=== PATIENT | female | born 1980 | race American Indian/Alaskan Native ===

== ENCOUNTER 2016-10-22 15:24 | Emergency (ER) | payer SELFPAY ==
[2016-10-22 15:41] VITALS: BP 133/88
--- NOTE | 2016-10-22 17:09 | EDM.PDOC ---
ED HPI ENT - General Chief Complaint: ENT Problem Stated Complaint: TOOTH ACHE Time Seen by Provider: 10/22/16 17:01 Source: Reports: Patient, RN notes reviewed History Limitations: Reports: No limitations - History of Present Illness INITIAL COMMENTS - FREE TEXT/NARRATIVE: 35-year-old female presents emergency department for a complaint of dental pain , she has a broken tooth in the back on the left side has been causing pain for the last 24 hours she does have an appointment with the community dentist the middle of November denies any fevers - Related Data Allergies/ADRs: Allergies Allergy/AdvReac Type Severity Reaction Status Date / Time No Known Allergies Allergy Verified 03/04/14 16:13 Home Meds: Home Meds Aspirin [Mary Chewable] 81 mg PO DAILY 03/04/14 [History] Insulin Aspart [NovoLOG] 12 units SQ TIDMEALS 03/04/14 [History] Insulin Detemir [Levemir Flexpen] 48 unit SQ BEDTIME 03/04/14 [History] Lisinopril 20 mg PO DAILY 03/04/14 [History] Simvastatin [Zocor] 10 mg PO DAILY 03/04/14 [History] Past Medical History Endocrine/Metabolic History: Reports: Diabetes, type II Social & Family History - Tobacco Use Smoking Status *Q: Current Every Day Smoker Years of Tobacco use: 10 Packs/Tins Daily: 0.5 Used Tobacco, but Quit: No - Alcohol Use Days Per Week of Alcohol Use: 1 Number of Drinks Per Day: 12 Total Drinks Per Week: 12 - Recreational Drug Use Recreational Drug Use: No ED ROS ENT - Review of Systems Review Of Systems: See Below Constitutional: Denies: fever, chills HEENT: Reports: Dental pain Respiratory: Reports: No Symptoms Cardiovascular: Reports: No symptoms GI/Abdominal: Reports: No symptoms : Reports: no symptoms ED EXAM, ENT - Physical Exam Exam: See Below Exam Limited By: No limitations General Appearance: alert, WD/WN, no apparent distress Mouth/Throat: Normal inspection, Normal lips, Dental pain, Dental tenderness, Dental trauma Head: atraumatic, normocephalic Neck: normal inspection, supple, non-tender, full range of motion Respiratory/Chest: no respiratory distress, lungs clear, normal breath sounds, no accessory muscle use Cardiovascular: regular rate, rhythm, no murmur Course - Vital Signs Last Recorded V/S: Last Vital Signs Temp 97.6 F 10/22/16 15:40 Pulse 93 10/22/16 15:40 Resp 16 10/22/16 15:40 BP 133/88 10/22/16 15:40 Pulse Ox 96 10/22/16 15:40 Departure - Departure Time of Disposition: 17:08 Disposition: Home, Self-Care 01 Condition: good Clinical Impression: Pain, dental Forms: ED Department Discharge Additional Instructions: Take full course of antibiotics, use hydrocodone for pain control in combination with ibuprofen please keep your followup appointment with dentistry, - Assessment/Plan Plan: Assessment Acuity = acute Site and laterality = dental pain concern for abscess tooth #16 Etiology = dental caries Manifestations = pain Location of injury = home Lab values = none Plan Keep your appointment with dentist, prescription written for clindamycin 300 mg 4 times a day x5 days hydrocodone for pain total #10 Patient was in agreement with the plan all questions were answered, they were instructed to return to the emergency department or call for worsening symptoms. This note was dictated using [employer] voice recognition software please call with any questions.
== END 2016-10-22 17:15 | disposition home or self-care (01) ==
LOC: JP.ED 15:24
DX: K08.89 Other specified disorders of teeth and supporting structures (principal); F17.210 Nicotine dependence, cigarettes, uncomplicated; E11.9 Type 2 diabetes mellitus without complications; Z79.82 Long term (current) use of aspirin; Z79.4 Long term (current) use of insulin; Z79.899 Other long term (current) drug therapy
CPT/HCPCS: 99283

== ENCOUNTER 2018-08-22 19:09 | Emergency (ER) | payer OTHER ==
[2018-08-22 20:09] VITALS: BP 124/92
--- NOTE | 2018-08-22 21:01 | EDM.PDOC ---
ED HPI GENERAL MEDICAL PROBLEM - General Chief Complaint: Wound Recheck Stated Complaint: ABSCESS BOIL LANCED Time Seen by Provider: 08/22/18 20:28 Source of Information: Reports: Patient History Limitations: Reports: No Limitations - History of Present Illness INITIAL COMMENTS - FREE TEXT/NARRATIVE: This lady had a boil lanced several days ago but she did not make her follow-up appointment. She just wants the thing rechecked. She's taking an antibiotic. She doesn't know if the packing is still in or not. She took a shower today area think that's all she's done for it 9 Pain Score (Numeric/FACES): 9 - Related Data Allergies Allergy/AdvReac Type Severity Reaction Status Date / Time No Known Allergies Allergy Verified 08/22/18 20:08 Home Meds: Home Meds Aspirin [Mary Chewable] 81 mg PO DAILY 03/04/14 [History] Insulin Aspart [NovoLOG] 12 units SQ TIDMEALS 03/04/14 [History] Insulin Detemir [Levemir Flexpen] 48 unit SQ BEDTIME 03/04/14 [History] Lisinopril 20 mg PO DAILY 03/04/14 [History] Simvastatin [Zocor] 10 mg PO DAILY 03/04/14 [History] Clindamycin HCl 300 mg PO QID 08/22/18 [History] Past Medical History - Past Health History Medical/Surgical History: Denies Medical/Surgical History Endocrine/Metabolic History: Reports: Diabetes, Type II Social & Family History - Tobacco Use Smoking Status *Q: Current Every Day Smoker Years of Tobacco use: 6 Packs/Tins Daily: 0.1 ED ROS GENERAL - Review of Systems Review Of Systems: ROS reveals no pertinent complaints other than HPI. ED EXAM, SKIN/RASH Exam: See Below Exam Limited By: No Limitations General Appearance: Alert, No Apparent Distress (Female) Exam: Other (There is an abscess on the medial side of the left crural fold. It appears to have been lanced. There is a yellow area of dried pus it's about 5 mm x 1 cm and that was picked off with a swab stick. There was no pus running out of it. I manipulated the area and it doesn't really seem very tender. There is no fluctuance.) Course - Vital Signs Last Recorded V/S: Last Vital Signs Temp 36.1 C 08/22/18 20:15 Pulse 97 08/22/18 20:15 Resp 16 08/22/18 20:15 BP 124/92 H 08/22/18 20:15 Pulse Ox 98 08/22/18 20:15 Departure - Departure Time of Disposition: 20:59 Disposition: Home, Self-Care 01 Condition: Fair Clinical Impression: Encounter for wound re-check - Discharge Information Referrals: PCP,None [Primary Care Provider] - Additional Instructions: Continue taking the antibiotics. Once or twice a day take a shower and run the hot water over the abscess. It should gradually get better area if you notice it getting worse than see your
== END 2018-08-22 21:20 | disposition home or self-care (01) ==
LOC: JP.ED 19:09
DX: Z48.817 Encounter for surgical aftercare following surgery on the skin and subcutaneous tissue (principal); F17.210 Nicotine dependence, cigarettes, uncomplicated; Z79.899 Other long term (current) drug therapy; Z79.82 Long term (current) use of aspirin
CPT/HCPCS: 99283

== ENCOUNTER 2020-04-17 02:15 | Emergency (ER) | payer MEDICAID, OTHER ==
[2020-04-17 02:33] VITALS: BP 148/89; PULSE 90
--- NOTE | 2020-04-17 02:45 | EDM.PDOC ---
ED HPI GENERAL MEDICAL PROBLEM - General Chief Complaint: ENT Problem Stated Complaint: BLOODY NOSE Time Seen by Provider: 04/17/20 02:36 Source of Information: Reports: Patient History Limitations: Reports: No Limitations - History of Present Illness INITIAL COMMENTS - FREE TEXT/NARRATIVE: The patient presents requesting pain medication following placement of nasal tampon devices for recurrent, severe nosebleeds. 6 days ago, she developed a nosebleed in the left nostril and went to [facility] in [place]. After several attempts to control bleeding, a Rhino rocket was placed in the right nostril but she required a rapid Rhino inflatable tampon for hemorrhage control in the left. It was recommended she use Tylenol and/or ibuprofen as needed for pain. The pressure from the rapid Rhino device in the left nostril has been unbearable and she has been unable to sleep for the last several nights. Bleeding has not recurred. She is scheduled to be seen in follow-up in ENT clinic in [place] on Friday, 18 April. Duration: Day(s): (6) Location: Reports: Face Quality: Reports: Ache, Pressure Severity: Moderate Improves with: Reports: None Worsens with: Reports: Movement Associated Symptoms: Reports: No Other Symptoms Left Face/Facial Pain Score (Numeric/FACES): 9 - Related Data Allergies Allergy/AdvReac Type Severity Reaction Status Date / Time No Known Allergies Allergy Verified 04/17/20 02:24 Home Meds: Home Meds Aspirin [Mary Chewable] 81 mg PO DAILY 03/04/14 [History] Insulin Aspart [NovoLOG] 12 units SQ TIDMEALS 03/04/14 [History] Insulin Detemir [Levemir Flexpen] 48 unit SQ BEDTIME 03/04/14 [History] Lisinopril 20 mg PO DAILY 03/04/14 [History] Simvastatin [Zocor] 10 mg PO DAILY 03/04/14 [History] Past Medical History - Past Health History Medical/Surgical History: Denies Medical/Surgical History Cardiovascular History: Reports: High Cholesterol, Hypertension Endocrine/Metabolic History: Reports: Diabetes, Type II - Infectious Disease History Infectious Disease History: Reports: Chicken Pox Social & Family History - Tobacco Use Smoking Status *Q: Current Every Day Smoker Years of Tobacco use: 25 Packs/Tins Daily: 0.2 - Caffeine Use Caffeine Use: Reports: Coffee, Soda, Tea - Recreational Drug Use Recreational Drug Use: No ED ROS ENT - Review of Systems Review Of Systems: Comprehensive ROS is negative, except as noted in HPI. ED EXAM, ENT - Physical Exam Exam: See Below Text/Narrative:: This is an adult female examined in room 2. Both the nasal tampon devices are in place and she looks extremely uncomfortable. Exam Limited By: No Limitations General Appearance: Moderate Distress Nose: Dried Blood, Other (The co pilot balloon for the rapid Rhino device in the le ft nostril still has tension in it indicating satisfactory pressure with in the nostril.). No: Active Bleeding Course - Vital Signs Last Recorded V/S: Last Vital Signs Temp 36.2 C 04/17/20 02:30 Pulse 90 04/17/20 02:30 Resp 16 04/17/20 02:30 BP 148/89 H 04/17/20 02:30 Pulse Ox 92 L 04/17/20 02:30 - Re-Assessments/Exams Free Text/Narrative Re-Assessment/Exam: 04/17/20 06:22 And [facility] prescription was entered for hydrocodone 5/325 mg, 8 tablets. She should continue to use cold compresses for additional pain relief over the face itself. She should avoid touching the tampons to reduce the risk of recurrent bleeding. If bleeding returns, she should return here or to [facility] in [place]. Departure - Departure Time of Disposition: 02:45 Disposition: Home, Self-Care 01 Clinical Impression: Epistaxis, Referred facial pain - Discharge Information Instructions: Nosebleed, [id number] Referrals: PCP,None [Primary Care Provider] - Forms: ED Department Discharge Additional Instructions: Keep nasal packing in place and try not to touch or bump the packing. Use hydrocodone as prescribed for pain. Keep your follow-up appointment with the ear nose and throat doctor on Friday as planned. If bleeding resumes around your packing, return to emergency department. Sepsis Event Note (ED) - Evaluation Sepsis Screening Result: No Definite Risk - Focused Exam Vital Signs: Vital Signs Temp Pulse Resp BP Pulse Ox 04/17/20 02:30 36.2 C 90 16 148/89 H 92 L
== END 2020-04-17 02:53 | disposition home or self-care (01) ==
LOC: JP.ED 02:15
DX: R04.0 Epistaxis (principal); R51 Headache; I10 Essential (primary) hypertension; E78.00 Pure hypercholesterolemia, unspecified; E11.9 Type 2 diabetes mellitus without complications; F17.210 Nicotine dependence, cigarettes, uncomplicated; Z79.82 Long term (current) use of aspirin; Z79.4 Long term (current) use of insulin; Z79.899 Other long term (current) drug therapy
CPT/HCPCS: 99283

== ENCOUNTER 2020-05-12 18:34 | Emergency (ER) | payer MEDICAID, OTHER ==
[2020-05-12 18:38] VITALS: BP 168/99; PULSE 97
[2020-05-12] MEDS ORDERED: Sodium Chloride 0.9% 1,000 ML IV ONE (19:25)
[2020-05-12] MEDS ORDERED: Ondansetron 4 MG/2 ML SDV IVPUSH ONE (19:26)
[2020-05-12] MEDS ORDERED: Sodium Chloride 0.9% 10 ML Syringe FLUSH PRN (19:26)
[2020-05-12] MEDS ORDERED: HYDROmorphone 0.5 MG/0.5 ML Syringe IVPUSH ONE (19:26)
--- NOTE | 2020-05-12 19:28 | EDM.PDOC ---
<Ashley Jalloh M - Last Filed: 05/12/20 20:43> ED HPI GENERAL MEDICAL PROBLEM - General Chief Complaint: Abdominal Pain Stated Complaint: MEDICAL VIA [facility] Time Seen by Provider: 05/12/20 19:22 Source of Information: Reports: Patient, RN, RN Notes Reviewed History Limitations: Reports: No Limitations - History of Present Illness INITIAL COMMENTS - FREE TEXT/NARRATIVE: Pt presents to ER with 3 days of nausea and vomiting. C/O pain midline near umbilicus. No fever, chills, SOB, CP, or cough. Pt has tried to drink pedialitye and that didn't stay down. Dry heaves presently. Pain 05/20 with no radiation but aching type pain. Onset Date: 05/10/20 Duration: Day(s):, Constant middle abd pain Pain Score (Numeric/FACES): 9 - Related Data Allergies Allergy/AdvReac Type Severity Reaction Status Date / Time No Known Allergies Allergy Verified 05/12/20 19:07 Home Meds: Home Meds Aspirin [Mary Chewable] 81 mg PO DAILY 03/04/14 [History] Insulin Aspart [NovoLOG] 12 units SQ TIDMEALS 03/04/14 [History] Insulin Detemir [Levemir Flexpen] 48 unit SQ BEDTIME 03/04/14 [History] Lisinopril 20 mg PO DAILY 03/04/14 [History] Simvastatin [Zocor] 10 mg PO DAILY 03/04/14 [History] Past Medical History - Past Health History Medical/Surgical History: Denies Medical/Surgical History Cardiovascular History: Reports: High Cholesterol, Hypertension Endocrine/Metabolic History: Reports: Diabetes, Type II - Infectious Disease History Infectious Disease History: Reports: Chicken Pox, Novel Coronavirus, Shingles Social & Family History - Tobacco Use Smoking Status *Q: Current Every Day Smoker Years of Tobacco use: 20 Packs/Tins Daily: 0.2 - Caffeine Use Caffeine Use: Reports: Coffee - Recreational Drug Use Recreational Drug Use: No ED ROS GENERAL - Review of Systems Review Of Systems: See Below Constitutional: Reports: Decreased Appetite HEENT: Reports: No Symptoms Respiratory: Reports: No Symptoms Cardiovascular: Reports: No Symptoms Endocrine: Reports: High Glucose (Known diabetic ) GI/Abdominal: Reports: Abdominal Pain, Decreased Appetite, Nausea, Vomiting : Reports: No Symptoms Musculoskeletal: Reports: No Symptoms Skin: Reports: No Symptoms Neurological: Reports: No Symptoms Psychiatric: Reports: No Symptoms Hematologic/Lymphatic: Reports: No Symptoms Immunologic: Reports: No Symptoms ED EXAM, GI/ABD - Physical Exam Exam: See Below Exam Limited By: No Limitations General Appearance: Alert, Mild Distress, Other (Somulent ) Head: Normocephalic Neck: Normal Inspection Respiratory/Chest: No Respiratory Distress, Lungs Clear Cardiovascular: Regular Rate, Rhythm GI/Abdominal Exam: Soft, No Distention, No Mass, Tender (Tender near midline umbilicus) (Female) Exam: Deferred Rectal (Female) Exam: Deferred Neurological: Alert, Oriented, CN II-XII Intact Psychiatric: Normal Affect Skin Exam: Warm, Dry Course - Re-Assessments/Exams Free Text/Narrative Re-Assessment/Exam: 05/12/20 20:40 Pt is sleeping and feels a bit better. Will d/c home. Departure - Departure Time of Disposition: 20:40 Disposition: Home, Self-Care 01 Condition: Good Clinical Impression: Gastroenteritis - Discharge Information *PRESCRIPTION DRUG MONITORING PROGRAM REVIEWED*: Not Applicable *COPY OF PRESCRIPTION DRUG MONITORING REPORT IN PATIENT WILLIAM: Not Applicable Instructions: Viral Gastroenteritis, Adult, [id number] Referrals: PCP,None [Primary Care Provider] - Forms: ED Department Discharge Care Plan Goals: Please allow for plenty of rest. Drink fluids and start out with clear liquids such as broth, jello, and apple juice. As your body tolerates, increase to a regular diet. Take the Zofran as directed for nausea. Should the symptoms persist beyond Friday, please see your provider or come back to the hospital. Sepsis Event Note (ED) - Evaluation Sepsis Screening Result: No Definite Risk - Problem List & Annotations (1) Gastroenteritis SNOMED Code(s): 37577184 Code(s): K52.9 - NONINFECTIVE GASTROENTERITIS AND COLITIS, UNSPECIFIED Sta tus: Acute Priority: High - Problem List Review Problem List Initiated/Reviewed/Updated: Yes - Assessment/Plan Plan: Please allow for plenty of rest. Drink fluids and start out with clear liquids such as broth, jello, and apple juice. As your body tolerates, increase to a regular diet. Take the Zofran as directed for nausea. Should the symptoms persist beyond Friday, please see your provider or come back to the hospital. <Tu Stahl - Last Filed: 05/12/20 21:47> Course - Vital Signs Last Recorded V/S: Last Vital Signs Temp 97.5 F 05/12/20 19:09 Pulse 97 05/12/20 19:09 Resp 16 05/12/20 19:09 BP 168/99 H 05/12/20 19:09 Pulse Ox 96 05/12/20 19:09 - Orders/Labs/Meds Orders: Active Orders 24 hr Category Date Time Status Sodium Chloride 0.9% [Saline Flush] Med 05/12/20 19:26 Active 10 ml FLUSH ASDIRECTED PRN Peripheral IV Insertion Adult [OM.PC] Routine Oth 05/12/20 19:26 Ordered Labs: Laboratory Tests 05/12/20 05/12/20 05/12/20 Range/Units 19:26 19:26 19:27 WBC 7.8 (4.5-11.0) K/uL RBC 4.52 (3.30-5.50) M/uL Hgb 12.2 (12.0-15.0) g/dL Hct 38.9 (36.0-48.0) % MCV 86 (80-98) fL MCH 27 (27-31) pg MCHC 31 L (32-36) % Plt Count 440 H (150-400) K/uL Neut % (Auto) 77 H (36-66) % Lymph % (Auto) 16 L (24-44) % Door % (Auto) 7 H (2-6) % Eos % (Auto) 0 L (2-4) % Baso % (Auto) 0 (0-1) % Sodium (140-148) mmol/L Potassium (3.6-5.2) mmol/L Chloride (100-108) mmol/L Carbon Dioxide (21-32) mmol/L Anion Gap (5.0-14.0) mmol/L BUN (7-18) mg/dL Creatinine (0.6-1.0) mg/dL Est Cr Clr Drug Dosing mL/min Estimated GFR (MDRD) (>60) Glucose (74-106) mg/dL Lactic Acid 1.2 (0.4-2.0) mmol/L Calcium (8.5-10.1) mg/dL Total Bilirubin (0.2-1.0) mg/dL AST (15-37) U/L ALT (12-78) U/L Alkaline Phosphatase (46-116) U/L Total Protein (6.4-8.2) g/dL Albumin (3.4-5.0) g/dL Globulin (2.3-3.5) g/dL Albumin/Globulin Ratio (1.2-2.2) Lipase 139 (73-393) U/L 05/12/20 Range/Units 19:27 WBC (4.5-11.0) K/uL RBC (3.30-5.50) M/uL Hgb (12.0-15.0) g/dL Hct (36.0-48.0) % MCV (80-98) fL MCH (27-31) pg MCHC (32-36) % Plt Count (150-400) K/uL Neut % (Auto) (36-66) % Lymph % (Auto) (24-44) % Door % (Auto) (2-6) % Eos % (Auto) (2-4) % Baso % (Auto) (0-1) % Sodium 131 L (140-148) mmol/L Potassium 3.9 (3.6-5.2) mmol/L Chloride 95 L (100-108) mmol/L Carbon Dioxide 26 (21-32) mmol/L Anion Gap 13.9 (5.0-14.0) mmol/L BUN 23 H (7-18) mg/dL Creatinine 1.3 H (0.6-1.0) mg/dL Est Cr Clr Drug Dosing 53.85 mL/min Estimated GFR (MDRD) 45 L (>60) Glucose 296 H (74-106) mg/dL Lactic Acid (0.4-2.0) mmol/L Calcium 9.2 (8.5-10.1) mg/dL Total Bilirubin 0.5 (0.2-1.0) mg/dL AST 9 L (15-37) U/L ALT 20 (12-78) U/L Alkaline Phosphatase 95 (46-116) U/L Total Protein 8.8 H (6.4-8.2) g/dL Albumin 3.6 (3.4-5.0) g/dL Globulin 5.2 H (2.3-3.5) g/dL Albumin/Globulin Ratio 0.7 L (1.2-2.2) Lipase (73-393) U/L Meds: Medications Discontinued Medications Generic Name Dose Route Start Last Admin Trade Name Kathrine PRN Reason Stop Dose Admin Hydromorphone HCl 0.5 mg 05/12/20 19:26 05/12/20 20:12 Dilaudid IVPUSH 05/12/20 19:27 0.5 mg ONETIME ONE Administration Sodium Chloride 1,000 mls @ 999 mls/hr 05/12/20 19:25 05/12/20 19:32 Normal Saline IV 05/12/20 20:25 999 mls/hr .BOLUS ONE Administration Ondansetron HCl 4 mg 05/12/20 19:26 05/12/20 20:11 Zofran IVPUSH 05/12/20 19:27 4 mg ONETIME ONE Administration Sodium Chloride 10 ml 05/12/20 19:26 05/12/20 20:12 Saline Flush FLUSH 10 ml ASDIRECTED PRN Administration Keep Vein Open - Re-Assessments/Exams Free Text/Narrative Re-Assessment/Exam: 05/12/20 21:43 History and exam confirmed and nurse practitioner student notes reviewed. She does have some nonspecific tenderness in the central abdomen and hypoactive bowel sounds but no acute tenderness or guarding or rebound. Work-up is negative, patient will be discharged with Zofran and hydrocodone and can follow- up in several days if not improving. Sepsis Event Note (ED) - Focused Exam Vital Signs: Vital Signs Temp Pulse Resp BP Pulse Ox 05/12/20 19:09 97.5 F 97 16 168/99 H 96 05/12/20 18:36 97.5 F 97 16 168/99 H 96 Attestation - Student - Attestation Statement Attestation Statement: I personally performed or re-performed the physical examination and medical decision making. I have verified all student documentation or findings, including history, physical exam and/or medical decision making.
== END 2020-05-12 21:41 | disposition home or self-care (01) ==
LOC: JP.ED 18:34
DX: K52.9 Noninfective gastroenteritis and colitis, unspecified (principal); I10 Essential (primary) hypertension; E78.00 Pure hypercholesterolemia, unspecified; E11.9 Type 2 diabetes mellitus without complications; F17.210 Nicotine dependence, cigarettes, uncomplicated; Z79.82 Long term (current) use of aspirin; Z79.899 Other long term (current) drug therapy; Z79.4 Long term (current) use of insulin
CPT/HCPCS: 36415; 80053; 83605; 83690; 85025; 96361; 96374; 96375; 99284; J1170; J2405; J7040; 99283

== ENCOUNTER 2021-01-19 21:34 | Emergency (ER) | payer MEDICAID ==
[2021-01-19 22:12] VITALS: BP 133/79; PULSE 95
--- NOTE | 2021-01-19 22:24 | EDM.PDOC ---
ED HPI GENERAL MEDICAL PROBLEM - General Chief Complaint: Lower Extremity Injury/Pain Stated Complaint: SWOLLEN RT FOOT Time Seen by Provider: 01/19/21 22:10 Source of Information: Reports: Patient History Limitations: Reports: No Limitations - History of Present Illness INITIAL COMMENTS - FREE TEXT/NARRATIVE: This is a 40 year old female presenting with right foot pain. Patient reports that approximately 2 weeks ago she tripped over a space heater while walking in the dark and hit her foot on it. She has had pain since then with difficulty bearing weight due to pain. pain worsens with increased weight bearing. She reports that the foot will also get swollen after walking on it also. She denies numbness, tingling, or weakness of the foot. she has been taking ibuprofen wi thout relief of pain. She is also complaining of dysuria and frequency for the past several days. no fever or flank pain. no nausea, vomiting or diarrhea. Right Feet Pain Score (Numeric/FACES): 8 - Related Data Allergies Allergy/AdvReac Type Severity Reaction Status Date / Time No Known Allergies Allergy Verified 01/19/21 22:39 Home Meds: Home Meds Insulin Aspart [NovoLOG] 40 units SQ TIDMEALS 03/04/14 [History] Insulin Detemir [Levemir Flexpen] 70 unit SQ BEDTIME 03/04/14 [History] Lisinopril 20 mg PO DAILY 03/04/14 [History] Simvastatin [Zocor] 10 mg PO DAILY 03/04/14 [History] Cholecalciferol (Vitamin D3) [Vitamin D] 2,000 unit PO DAILY 01/19/21 [History] Gabapentin [Neurontin] 1 tab PO DAILY 01/19/21 [History] Ketorolac [Toradol] 10 mg PO Q6H PRN #20 tab 01/19/21 [Rx] Nitrofurantoin Monohyd/M-Cryst [Macrobid 100 mg Capsule] 100 mg PO BID 5 Days #10 capsule 01/19/21 [Rx] Past Medical History - Past Health History Medical/Surgical History: Denies Medical/Surgical History Cardiovascular History: Reports: High Cholesterol, Hypertension Endocrine/Metabolic History: Reports: Diabetes, Type II - Infectious Disease History Infectious Disease History: Reports: Chicken Pox, Novel Coronavirus, Shingles Social & Family History - Family History Family Medical History: No Pertinent Family History - Caffeine Use Caffeine Use: Reports: Coffee Review of Systems - Review of Systems Review Of Systems: Comprehensive ROS is negative, except as noted in HPI. ED EXAM, GENERAL - Physical Exam Exam: See Below Exam Limited By: No Limitations General Appearance: Alert, WD/WN, No Apparent Distress Respiratory/Chest: No Respiratory Distress, No Accessory Muscle Use Cardiovascular: Regular Rate, Rhythm GI/Abdominal: Soft, Non-Tender, Other (no CVA tenderness) Extremities: Other (Right foot without swelling, erythema, ecchymosis, or deformity. Tender to palpation over the 5th metatarsal. No right ankle tenderness or deforimty. Normal ROM of R ankle.) Neurological: Alert, Oriented, No Motor/Sensory Deficits Skin Exam: Warm, Dry, Normal Color, No Rash Course - Vital Signs Last Recorded V/S: Last Vital Signs Temp 97.5 F 01/19/21 22:42 Pulse 95 01/19/21 22:42 Resp 18 01/19/21 22:42 BP 133/79 01/19/21 22:42 Pulse Ox 94 L 01/19/21 22:42 - Orders/Labs/Meds Orders: Active Orders 24 hr Category Date Time Status Consult to Orthopedic Clinic [CONS] Routine Cons 01/19/21 23:00 Active Foot 2V Rt [CR] Stat Exams 01/19/21 22:17 Taken Labs: Laboratory Tests 01/19/21 Range/Units 22:55 Urine Color Yellow (YELLOW) Urine Appearance Slightly cloudy A (CLEAR) Urine pH 6.0 (5.0-8.0) Ur Specific [place] 1.020 (1.008-1.030) Urine Protein Negative (NEGATIVE) mg/dL Urine Glucose (UA) 500 H (NEGATIVE) mg/dL Urine Ketones Negative (NEGATIVE) mg/dL Urine Occult Blood Negative (NEGATIVE) Urine Nitrite Positive H (NEGATIVE) Urine Bilirubin Negative (NEGATIVE) Urine Urobilinogen 1.0 (0.2-1.0) EU/dL Ur Leukocyte Esterase Small H (NEGATIVE) Urine RBC 0-5 (0-5) Urine WBC 5-10 H (0-5) Ur Epithelial Cells Few Amorphous Sediment Not seen Urine Bacteria Many Urine Mucus Not seen Departure - Departure Time of Disposition: 23:21 Disposition: Home, Self-Care 01 Clinical Impression: Fracture of fifth metatarsal bone of right foot, UTI (urinary tract infection) - Discharge Information Prescriptions: Nitrofurantoin Monohyd/M-Cryst [Macrobid 100 mg Capsule] 100 mg PO BID 5 Days #10 capsule Ketorolac [Toradol] 10 mg PO Q6H PRN #20 tab PRN Reason: Pain Instructions: Metatarsal Fracture Referrals: PCP,None [Primary Care Provider] - Forms: ED Department Discharge Additional Instructions: Use tylenol and ibuprofen for pain. Wear the walking boot at all times when up and moving around. it is ok to remove it when at rest and apply ice. You should limit weight bearing until follow up with orthopedics. They will call you to schedule a follow up appointment next week. Take your antibiotics for the UTI as prescribed until they are all gone. Sepsis Event Note (ED) - Focused Exam Vital Signs: Vital Signs Temp Pulse Resp BP Pulse Ox 01/19/21 22:42 97.5 F 95 18 133/79 94 L 01/19/21 22:10 97.5 F 95 18 133/79 94 L - Problem List Review Problem List Initiated/Reviewed/Updated: Yes - My Orders Last 24 Hours: My Active Orders 01/19/21 22:17 Foot 2V Rt [CR] Stat 01/19/21 23:00 Consult to Orthopedic Clinic [CONS] Routine - Assessment/Plan Last 24 Hours: My Active Orders 01/19/21 22:17 Foot 2V Rt [CR] Stat 01/19/21 23:00 Consult to Orthopedic Clinic [CONS] Routine Plan: This is a 40 year old female presenting with right foot pain. Differential diagnosis includes fracture, sprain, contusion, among others. She is neurovascularly intact. There is no evidence of compartment syndrome or open fracture. XR revealed right 5th metatarsal fracture. She will be placed in a walking boot with limited weight bearing until follow up with orthopedics in 4-5 days. Patient also complaining of dysuria and frequency. Urinalysis is consistent with infection. There is no evidence of pyelonephritis or sepsis. Will plan to treat with a course of macrobid. She is appropriate for discharge home and will follow up with orthopedics for her metatarsal fracture.
--- NOTE | 2021-01-22 09:26 | CR ---
FOOT RIGHT 3 views CLINICAL HISTORY:Trauma FINDINGS:There is an oblique fracture of the fifth metatarsal with minimal displacement. There is a tiny calcaneal spur. Impression: Fracture Right fifth metatarsal
== END 2021-01-19 23:29 | disposition home or self-care (01) ==
LOC: JP.ED 21:34
DX: S92.351A Displaced fracture of fifth metatarsal bone, right foot, initial encounter for closed fracture (principal); N39.0 Urinary tract infection, site not specified; E78.00 Pure hypercholesterolemia, unspecified; I10 Essential (primary) hypertension; E11.9 Type 2 diabetes mellitus without complications; Z79.4 Long term (current) use of insulin; Z79.899 Other long term (current) drug therapy; W01.198A Fall on same level from slipping, tripping and stumbling with subsequent striking against other object, initial encounter
CPT/HCPCS: 73620-26-RT; 73620-RT; 81001; 99283

== ENCOUNTER 2021-04-07 16:37 | Emergency (ER) | payer MEDICAID ==
[2021-04-07 16:55] VITALS: BP 180/95; PULSE 90
[2021-04-07] MEDS ORDERED: Sodium Chloride 0.9% 10 ML Syringe FLUSH PRN (17:11)
[2021-04-07] MEDS ORDERED: Ondansetron 4 MG/2 ML SDV IVPUSH ONE (17:13)
[2021-04-07] MEDS ORDERED: Sodium Chloride 0.9% 1,000 ML IV SCH ×2 (17:45→18:45)
--- NOTE | 2021-04-07 18:02 | EDM.PDOC ---
ED HPI GENERAL MEDICAL PROBLEM - General Chief Complaint: Gastrointestinal Problem Stated Complaint: MEDICAL VIA NORTH-VOMITING Time Seen by Provider: 04/07/21 17:05 Source of Information: Reports: Patient, EMS, RN History Limitations: Reports: No Limitations - Related Data Allergies Allergy/AdvReac Type Severity Reaction Status Date / Time tramadol Allergy Nausea Verified 04/07/21 16:47 Home Meds: Home Meds Insulin Aspart [NovoLOG] 40 units SQ TIDMEALS 03/04/14 [History] Insulin Detemir [Levemir Flexpen] 70 unit SQ BEDTIME 03/04/14 [History] Lisinopril 20 mg PO DAILY 03/04/14 [History] Simvastatin [Zocor] 10 mg PO DAILY 03/04/14 [History] Cholecalciferol (Vitamin D3) [Vitamin D] 2,000 unit PO DAILY 01/19/21 [History] Gabapentin [Neurontin] 1 tab PO DAILY 01/19/21 [History] Past Medical History - Past Health History Medical/Surgical History: Denies Medical/Surgical History Cardiovascular History: Reports: High Cholesterol, Hypertension Endocrine/Metabolic History: Reports: Diabetes, Type II - Infectious Disease History Infectious Disease History: Reports: Chicken Pox, Novel Coronavirus, Shingles Social & Family History - Family History Family Medical History: No Pertinent Family History - Tobacco Use Tobacco Use Status *Q: Current Every Day Tobacco User Years of Tobacco use: 5 Packs/Tins Daily: 0.5 - Caffeine Use Caffeine Use: Reports: Coffee ED ROS GENERAL - Review of Systems Review Of Systems: See Below Constitutional: Reports: Chills, Fatigue, Decreased Appetite HEENT: Reports: No Symptoms Respiratory: Reports: No Symptoms Cardiovascular: Reports: No Symptoms Endocrine: Reports: High Glucose GI/Abdominal: Reports: Abdominal Pain, Nausea, Vomiting. Denies: Black Stool, Bloody Stool, Diarrhea : Reports: No Symptoms Musculoskeletal: Reports: No Symptoms Skin: Reports: No Symptoms Neurological: Reports: No Symptoms Psychiatric: Reports: No Symptoms Hematologic/Lymphatic: Reports: No Symptoms Immunologic: Reports: No Symptoms ED EXAM, GI/ABD - Physical Exam Exam: See Below Exam Limited By: No Limitations General Appearance: Alert, Moderate Distress Respiratory/Chest: No Respiratory Distress, Lungs Clear, Normal Breath Sounds Cardiovascular: Normal Peripheral Pulses, Regular Rate, Rhythm, No Edema GI/Abdominal Exam: Soft, No Abnormal Bruit, No Mass, Tender, Abnormal Bowel Sounds. No: Hernia, Mass, Hepatomegaly, Splenomegaly Extremities: Normal Inspection, Normal Range of Motion Neurological: Alert, Oriented, CN II-XII Intact, Normal Cognition, Normal Gait Psychiatric: Normal Affect, Normal Mood Skin Exam: Warm, Dry, Intact, Normal Color, No Rash Lymphatic: No Adenopathy Course - Vital Signs Last Recorded V/S: Last Vital Signs Temp 36.2 C 04/07/21 16:52 Pulse 90 04/07/21 16:52 Resp 14 04/07/21 16:52 BP 180/95 H 04/07/21 16:52 Pulse Ox 95 04/07/21 16:52 - Orders/Labs/Meds Orders: Active Orders 24 hr Category Date Time Status Peripheral IV Insertion Adult [OM.PC] Routine Oth 04/07/21 17:11 Ordered Labs: Laboratory Tests 04/07/21 04/07/21 04/07/21 Range/Units 17:23 17:28 17:28 WBC 8.7 (4.5-11.0) K/uL RBC 4.60 (3.30-5.50) M/uL Hgb 11.8 L (12.0-15.0) g/dL Hct 38.2 (36.0-48.0) % MCV 83 (80-98) fL MCH 26 L (27-31) pg MCHC 31 L (32-36) % Plt Count 418 H (150-400) K/uL Sodium 134 L (140-148) mmol/L Potassium 4.2 (3.6-5.2) mmol/L Chloride 99 L (100-108) mmol/L Carbon Dioxide 23 (21-32) mmol/L Anion Gap 16.2 H (5.0-14.0) mmol/L BUN 21 H (7-18) mg/dL Creatinine 1.2 H (0.6-1.0) mg/dL Est Cr Clr Drug Dosing 57.75 mL/min Estimated GFR (MDRD) 50 L (>60) Glucose 292 H (74-106) mg/dL Calcium 9.2 (8.5-10.1) mg/dL Total Bilirubin 0.4 (0.2-1.0) mg/dL AST 8 L (15-37) U/L ALT 17 (12-78) U/L Alkaline Phosphatase 123 H (46-116) U/L C-Reactive Protein 2.61 H (0.0-0.3) mg/dL Total Protein 8.5 H (6.4-8.2) g/dL Albumin 3.2 L (3.4-5.0) g/dL Globulin 5.3 H (2.3-3.5) g/dL Albumin/Globulin Ratio 0.6 L (1.2-2.2) Amylase 26 (25-115) U/L Lipase 97 (73-393) U/L Ketones Negative (NEGATIVE) No evidence of DKA or pancreatitis on lab work. 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 Vomiting, dehydration Meds: Medications Discontinued Medications Generic Name Dose Route Start Last Admin Trade Name Freq PRN Reason Stop Dose Admin Dextrose/Water 50 ml 04/07/21 19:09 50% Dextrose In Water 50 Ml Syringe IVPUSH ASDIRECTED PRN Hypoglycemia Glucagon 1 mg 04/07/21 19:09 Glucagon,Human Recombinant 1 Mg Vial IM ASDIRECTED PRN Hypoglycemia Sodium Chloride 1,000 mls @ 999 mls/hr 04/07/21 17:45 04/07/21 17:35 Normal Saline IV 999 mls/hr ASDIRECTED NATHALY Administration Sodium Chloride 1,000 mls @ 999 mls/hr 04/07/21 18:45 04/07/21 18:35 Normal Saline IV 999 mls/hr ASDIRECTED NATHALY Administration Insulin Human Lispro 20 unit 04/07/21 19:09 04/07/21 19:19 Insulin Lispro 100 Unit/Ml 3 Ml Kwikpen SUBCUT 04/07/21 19:10 20 units ONETIME ONE Administration Ondansetron HCl 4 mg 04/07/21 17:13 04/07/21 17:31 Ondansetron 4 Mg/2 Ml Sdv IVPUSH 04/07/21 17:14 4 mg ONETIME ONE Administration Sodium Chloride 10 ml 04/07/21 17:11 04/07/21 17:30 Sodium Chloride 0.9% 10 Ml Syringe FLUSH 10 ml ASDIRECTED PRN Administration Keep Vein Open - Re-Assessments/Exams Free Text/Narrative Re-Assessment/Exam: 04/07/21 18:46 Re-evaluation - patient improvement with fluids and antiemetic. Instructed pt she must take 1/2 her dose of insulin when not able to eat as not to develop DKA or further complications Departure - Departure Time of Disposition: 19:51 Disposition: Home, Self-Care 01 Condition: Fair Clinical Impression: Nausea & vomiting, Dehydration with hyponatremia, Vomiting, Diarrhea, Gastroenteritis - Discharge Information *PRESCRIPTION DRUG MONITORING PROGRAM REVIEWED*: Not Applicable Instructions: Viral Gastroenteritis, Adult, [id number], Dehydration, Adult, [id number], Nausea and Vomiting, Adult Referrals: PCP,None [Primary Care Provider] - Forms: ED Department Discharge Additional Instructions: [place] diet, take 1/2 dose of insulin while not eating to prevent adverse effects. Keep sipping fluids to maintain hydration. Utilize [employer] [facility] up to every eight hours for nausea and vomiting. Sepsis Event Note (ED) - Evaluation Sepsis Screening Result: No Definite Risk - Focused Exam Vital Signs: Vital Signs Temp Pulse Resp BP Pulse Ox 04/07/21 16:52 36.2 C 90 14 180/95 H 95 - My Orders Last 24 Hours: My Active Orders 04/07/21 17:11 Peripheral IV Insertion Adult [OM.PC] Routine - Assessment/Plan Last 24 Hours: My Active Orders 04/07/21 17:11 Peripheral IV Insertion Adult [OM.PC] Routine Assessment:: gastroenteritis Nausea, Vomiting, Diarrhea Plan: Pt received 2 liters of fluids and antiemetic in the ED. Instructed to keep diet bland until she is able to return to her regular diet. Return to ER if vomiting returns or continues. Take 1/2 dose of insulins when not eating. F/U with primary care provider in the next 3-5 days or sooner if necessary.
[2021-04-07] MEDS ORDERED: Insulin Lispro 100 Unit/ML 3 ML KwikPen SUBCUT ONE (19:09)
[2021-04-07] MEDS ORDERED: 50% Dextrose in Water 50 ML Syringe IVPUSH PRN (19:09)
[2021-04-07] MEDS ORDERED: Glucagon,Human Recombinant 1 MG Vial IM PRN (19:09)
== END 2021-04-07 19:54 | disposition home or self-care (01) ==
LOC: JP.ED 16:37
DX: K52.9 Noninfective gastroenteritis and colitis, unspecified (principal); E86.0 Dehydration; E87.1 Hypo-osmolality and hyponatremia; E78.00 Pure hypercholesterolemia, unspecified; I10 Essential (primary) hypertension; E11.9 Type 2 diabetes mellitus without complications; Z88.5 Allergy status to narcotic agent; Z79.4 Long term (current) use of insulin; Z79.899 Other long term (current) drug therapy; Z72.0 Tobacco use
CPT/HCPCS: 36415; 80053; 82009; 82150; 83690; 85027; 86140; 96374; 99284; J1815; J2405; J7030

== ENCOUNTER 2023-02-06 14:28 | Emergency (ER) | payer MEDICAID ==
[2023-02-06 14:31] VITALS: BP 149/105; PULSE 108
[2023-02-06] MEDS ORDERED: Ondansetron 4 MG/2 ML SDV IVPUSH ONE (14:37)
[2023-02-06] MEDS: Sodium Chloride 0.9% 1,000 ML IV SCH ×2 (14:51→17:10)
[2023-02-06 14:54] LABS: BASOPHILS ABSOLUTE AUTO 0.01 K/uL (0.00-0.10); BASOPHILS PERCENT AUTO 0.1 % (0.1-1.3); EOSINOPHILS ABSOLUTE AUTO 0.01 K/uL (0.00-0.40); EOSINOPHILS PERCENT AUTO 0.1 % (0.0-5.4); HEMATOCRIT 37.2 % (34.3-46.0); HEMOGLOBIN 12.5 g/dL (11.2-15.5); IMMATURE GRAN ABSOLUTE AUTO 0.03 K/uL (0.00-0.23); IMMATURE GRAN PERCENT AUTO 0.3 % (0.0-0.7); LYMPHOCYTES ABSOLUTE AUTO 0.88 K/uL (0.8-3.3); LYMPHOCYTES PERCENT AUTO 10.1 % (11.4-47.7); MEAN CORPUSCULAR HEMOGLOBIN 29.3 pg (31.6-35.5); MEAN CORPUSCULAR HGB CONC 33.6 g/dL (31.6-35.5); MEAN CORPUSCULAR VOLUME 87.3 fL (81.4-99.0); MONOCYTES ABSOLUTE AUTO 0.35 K/uL (0.20-0.90); NEUTROPHILS ABSOLUTE AUTO 7.45 K/uL (1.0-7.6); NEUTROPHILS PERCENT AUTO 85.4 % (40.0-78.1); PLATELET COUNT,PLT 383 K/uL (130-375); RED BLOOD CELL COUNT 4.26 M/uL (3.77-5.24); WHITE BLOOD CELL COUNT,WBC 8.7 K/uL (3.2-11.0)
[2023-02-06 15:14] LABS: A/G RATIO 0.7 (1.2-2.2); ALANINE AMINOTRANSFERASE,ALT 18 U/L (12-78); ALBUMIN 3.3 g/dL (3.4-5.0); ALKALINE PHOSPHATASE 99 U/L (46-116); ANION GAP 14.8 mmol/L (5.0-14.0); ASPARTATE AMNIOTRANSFERASE,AST 12 U/L (15-37); BILIRUBIN TOTAL 0.4 mg/dL (0.2-1.0); BLOOD UREA NITROGEN,BUN 28 mg/dL (7-18); CALCIUM 9.1 mg/dL (8.5-10.1); CARBON DIOXIDE,CO2 22 mmol/L (21-32); CHLORIDE,CL 104 mmol/L (100-108); CREATININE 1.3 mg/dL (0.6-1.0); EST CRCL DRUG DOSING (CG) 52.24 mL/min; ESTIMATED GFR 52 mL/min (>60); GLUCOSE RANDOM 183 mg/dL (74-106); POTASSIUM,K 3.8 mmol/L (3.6-5.2); PROTEIN TOTAL,TP 8.1 g/dL (6.4-8.2); SODIUM,NA 137 mmol/L (140-148)
[2023-02-06] MEDS ORDERED: droPERidol 5 MG/2 ML SDV IVPUSH ONE (17:05)
[2023-02-06] MEDS ORDERED: Sodium Chloride 0.9% 1,000 ML IV SCH (17:15)
== END 2023-02-06 18:08 | disposition home or self-care (01) ==
LOC: JP.ED 14:28
DX: K52.29 Other allergic and dietetic gastroenteritis and colitis (principal); I10 Essential (primary) hypertension; E11.9 Type 2 diabetes mellitus without complications; Z86.16 Personal history of COVID-19; Z88.5 Allergy status to narcotic agent; Z79.4 Long term (current) use of insulin; Z79.899 Other long term (current) drug therapy
CPT/HCPCS: 36415; 80053; 83605; 85025; 96361; 96374; 96375; 99284; J1790; J2405; J7030

== ENCOUNTER 2025-06-04 19:33 | Emergency (ER) | payer MEDICAID ==
[2025-06-04 19:49] VITALS: BP 118/86; PULSE 114
[2025-06-04] MEDS: Lidocaine 2% Viscous Solution 15 ML UD PO ONE (19:57)
[2025-06-04] MEDS: fentaNYL 50 MCG/ML SDV IVPUSH ONE (20:06)
== END 2025-06-04 22:27 | disposition home or self-care (01) ==
LOC: JP.ED 19:33
DX: R04.0 Epistaxis (principal); E78.00 Pure hypercholesterolemia, unspecified; I10 Essential (primary) hypertension; E11.9 Type 2 diabetes mellitus without complications; F17.210 Nicotine dependence, cigarettes, uncomplicated; Z88.5 Allergy status to narcotic agent; Z79.899 Other long term (current) drug therapy; Z79.85 Long-term (current) use of injectable non-insulin antidiabetic drugs; Z86.16 Personal history of COVID-19
CPT/HCPCS: 96374; 96375; 99284; A9270; J3010; J3490